=== PATIENT | female | born 1995 | race Caucasian/White ===

== ENCOUNTER 2018-05-17 15:43 | Emergency (ER) | payer MEDICAID ==
[2018-05-17 17:19] LABS: BILIRUBIN,URINE NEGATIVE (NEGATIVE); GLUCOSE, URINE (UA) NEGATIVE (NEGATIVE); KETONES,URINE (UA) NEGATIVE (NEGATIVE); LEUKOCYTE ESTERASE, URINE NEGATIVE (NEGATIVE); NITRITE,URINE POSITIVE (NEGATIVE); OCCULT BLOOD,URINE LARGE (NEGATIVE); PROTEIN,URINE TRACE mg/dL (NEGATIVE); UROBILINOGEN,URINE 0.2 (NORMAL) E.U./dL (NORMAL)
[2018-05-17 17:22] LABS: CLARITY,URINE CLOUDY (CLEAR)
[2018-05-17] MEDS ORDERED: SODIUM CHLORIDE 0.9% 1,000 ML IV ONE (17:24)
[2018-05-17] MEDS ORDERED: ONDANSETRON 4 MG/2 ML VIAL IVP STA (17:25)
[2018-05-17] MEDS ORDERED: HYDROmorphone 2 MG/ML VIAL IVP STA ×3 (17:25→21:23)
--- NOTE | 2018-05-17 17:28 | ED Physician Documentation ---
PD HPI ABD PAIN - Stated complaint Stated Complaint: ABD PX/FEM - Chief complaint Chief Complaint: Abd Pain - History obtained from History obtained from: Patient - History of Present Illness Timing - onset: Yesterday (, with 2 miscarriages in the past. She developed pelvic cramps yesterday which she thought was her menses. Her last period was March 25 and she is a bit late. She doubts though. She developed significant and severe bandlike lower abdominal/pelvic pain around noon today associated with hematuria one episode of diarrhea and vomiting. No sick contacts or recent travel.) - Additional information Additional information: She did have chlamydia once when she was 16, he is not particularly worried about STDs at this juncture as she has been with her current partner and they are for several years. Review of Systems Ten Systems: 10 systems reviewed and negative Constitutional: denies: Fever, Chills Cardiac: denies: Chest pain / pressure, Palpitations Respiratory: denies: Dyspnea, Cough GI: reports: Abdominal Pain, Nausea, Vomiting, Diarrhea : reports: Hematuria. denies: Dysuria, Frequency PD PAST MEDICAL HISTORY - Past Medical History Cardiovascular: None Respiratory: Asthma Endocrine/Autoimmune: None GI: None DIE BARBER: None HEENT: None Psych: Bipolar disorder Musculoskeletal: None Derm: None - Past Surgical History Past Surgical History: Yes - Present Medications Home Medications: Ambulatory Orders Medication Instructions Recorded Confirmed Albuterol 1 inh INH BID PRN 05/17/18 05/17/18 Ciprofloxacin HCl [Cipro] 500 mg PO BID #20 tablet 05/17/18 HYDROcod/ACETAM 5/325 [[place] 5/325] 1 - 2 ea PO Q6H PRN #15 tablet 05/17/18 - Allergies Allergies/Adverse Reactions: Allergies Allergy/AdvReac Type Severity Reaction Status Date / Time oxycodone HCl * Allergy Intermediate Emesis Verified 05/17/18 15:53 [From Percocet] codeine Allergy Itching Verified 05/17/18 15:53 - Social History Does the pt smoke?: Yes Smoking Status: Current every day smoker Does the pt drink ETOH?: Yes Does the pt have substance abuse?: Yes - Family History Family history: reports: Non contributory - Immunizations Immunizations are current?: No Immunizations: TDAP >10years/unknown - POLST Patient has POLST: No PD ED PE NORMAL - Vitals Vital signs reviewed: Yes - General General: Alert and oriented X 3, No acute distress - HEENT HEENT: PERRL, EOMI - Neck Neck: Supple, no meningeal sign, No bony TTP - Cardiac Cardiac: RRR, No murmur - Respiratory Respiratory: No respiratory distress, Clear bilaterally - Abdomen Abdomen: Other (Tender in the pelvis without lateralization, no surgical signs.) - Female Female : Refrigeration Specialist present (Taylor Rivera RN), Other (Some brownish and bloody discharge, no cervical motion or significant adnexal tenderness.) - Back Back: No CVA TTP, No spinal TTP - Derm Derm: Normal color, Warm and dry - Extremities Extremities: No deformity, No tenderness to palpate - Neuro Neuro: Alert and oriented X 3, Normal speech - Psych Psych: Normal mood, Normal affect Results - Vitals Vitals: Vital Signs - 24 hr 05/17/18 05/17/18 05/17/18 15:49 19:58 21:31 Temperature 36.2 C L 36.7 C Heart Rate 53 L 70 60 Respiratory 16 20 18 Rate Blood Pressure 134/89 H 126/78 130/84 H O2 Saturation 99 98 99 Oxygen O2 Source Room air - Labs Labs: Laboratory Tests 05/17/18 05/17/18 05/17/18 17:10 17:10 17:30 WBC 13.9 H RBC 5.06 Hgb 14.1 Hct 44.0 MCV 87.0 MCH 27.8 MCHC 32.0 RDW 15.5 H Plt Count 298 MPV 8.0 Neut # (Auto) 11.5 H Lymph # (Auto) 1.1 L Lea # (Auto) 0.8 Eos # (Auto) 0.4 Baso # (Auto) 0.1 Absolute Nucleated RBC 0.00 Nucleated RBC % 0.0 Sodium Potassium Chloride Carbon Dioxide Anion Gap BUN Creatinine Estimated GFR (MDRD) Glucose Calcium Total Bilirubin AST ALT Alkaline Phosphatase Total Protein Albumin Globulin Albumin/Globulin Ratio Lipase Urine Color LT RED Urine Clarity CLOUDY Urine pH 8.0 H Ur Specific [place] 1.020 1.020 Urine Protein TRACE Urine Glucose (UA) NEGATIVE Urine Ketones NEGATIVE Urine Occult Blood LARGE H Urine Nitrite POSITIVE H Urine Bilirubin NEGATIVE Urine Urobilinogen 0.2 (NORMAL) Ur Leukocyte Esterase NEGATIVE Urine RBC TNTC H Urine WBC 11-25 H Ur Squamous Epith Cells FEW Squamous Urine Bacteria Moderate H Ur Microscopic Review INDICATED Urine Culture Comments INDICATED Urine HCG, Qual NEGATIVE 05/17/18 17:30 WBC RBC Hgb Hct MCV MCH MCHC RDW Plt Count MPV Neut # (Auto) Lymph # (Auto) Lea # (Auto) Eos # (Auto) Baso # (Auto) Absolute Nucleated RBC Nucleated RBC % Sodium 141 Potassium 3.7 Chloride 107 Carbon Dioxide 24 Anion Gap 10.0 BUN 9 Creatinine 0.8 Estimated GFR (MDRD) 89 Glucose 105 H Calcium 9.6 Total Bilirubin 0.9 AST 22 ALT 18 Alkaline Phosphatase 65 Total Protein 7.9 Albumin 4.0 Globulin 3.9 Albumin/Globulin Ratio 1.0 Lipase 21 L Urine Color Urine Clarity Urine pH Ur Specific [place] Urine Protein Urine Glucose (UA) Urine Ketones Urine Occult Blood Urine Nitrite Urine Bilirubin Urine Urobilinogen Ur Leukocyte Esterase Urine RBC Urine WBC Ur Squamous Epith Cells Urine Bacteria Ur Microscopic Review Urine Culture Comments Urine HCG, Qual - Rads (name of study) Pelvic sono Radiology: EMP read contemporaneously (Small solid-appearing focus abutting the left ovary, possibly fallopian tube thickening or scarring.) CT A/P Radiology: EMP read contemporaneously (Normal) PD MEDICAL DECISION MAKING - ED course ED course: 22-year-old woman with acute pelvic pain, she has irregular menses and of course there is a concern for but that is not corroborated on test. She did have positive urinalysis but given the atypical symptoms this was followed by a pelvic ultrasound which was without really relevant findings, an abdominal CT which was normal, and a pelvic exam which was Without overt evidence of PID. She was treated with Rocephin here. Despite her allergies she says she is taking Dilaudid in the past but she only one very small doses which were given in stepwise fashion with improvement in her symptoms. - Sepsis Event Vital Signs: Vital Signs - 24 hr 05/17/18 05/17/18 05/17/18 15:49 19:58 21:31 Temperature 36.2 C L 36.7 C Heart Rate 53 L 70 60 Respiratory 16 20 18 Rate Blood Pressure 134/89 H 126/78 130/84 H O2 Saturation 99 98 99 Oxygen O2 Source Room air Departure - Departure Disposition: 01 Home, Self Care Clinical Impression: Abdominal pain, Bladder infection Condition: Good Record reviewed to determine appropriate education?: Yes Instructions: ED Pelvic Pain [facility] Prescriptions: Ciprofloxacin HCl [Cipro] 500 mg PO BID #20 tablet HYDROcod/ACETAM 5/325 [[place] 5/325] 1 - 2 ea PO Q6H PRN #15 tablet PRN Reason: Pain Comments: If not better by Sunday morning please return for reevaluation, sooner if worse or if new symptoms develop. We will culture your urine, the results should be done in 48-72 hours. If an antibiotic change is necessary we will call you. Return if worse in the meantime, especially if you develop increasing flank pain, fevers, or cannot keep down the medication. Do not drink or drive while taking narcotic pain medication. Note that many narcotic pain relievers also contain Tylenol/acetaminophen. Please ensure that your total dose of acetaminophen from all sources does not exceed 3 g (3000 mg) per day. You may get constipated while on this medication. Take a stool softener such as Colace twice a day while you are on it. Also add an iejn-xaw-linlqrq laxative such as senna or MiraLAX on any day that you do not have a bowel movement. If you received a narcotic pain medication or sedative while in the emergency department, do not drive for the next 24 hours.
[2018-05-17 17:37] LABS: RBC,URINE TNTC /HPF (0-5); SQUAMOUS EPITHELIAL CELL,UR FEW Squamous (<= Few)
[2018-05-17 17:38] LABS: BACTERIA,URINE Moderate /HPF (None Seen)
[2018-05-17 17:39] LABS: BASOPHILS # (AUTO) 0.1 10^3/uL (0.0-0.1); BASOPHILS % (AUTO) 0.5 %; EOSINOPHILS # (AUTO) 0.4 10^3/uL (0.0-0.7); EOSINOPHILS % (AUTO) 3.1 %; HGB - HEMOGLOBIN 14.1 g/dL (12.0-16.0); LYMPHOCYTES # (AUTO) 1.1 10^3/uL (1.5-3.5); LYMPHOCYTES % (AUTO) 8.1 %; MEAN CORPUSCULAR HEMOGLOBIN 27.8 pg (27.0-31.0); MONOCYTES # (AUTO) 0.8 10^3/uL (0.0-1.0); MONOCYTES % (AUTO) 5.4 %; NEUTROPHILS # (AUTO) 11.5 10^3/uL (1.5-6.6); NEUTROPHILS % (AUTO) 82.9 %; PLT - PLATELET COUNT 298 10^3/uL (130-450); RED BLOOD COUNT 5.06 10^6/uL (4.20-5.40); RED CELL DISTRIBUTION WIDTH 15.5 % (12.0-15.0); WHITE BLOOD COUNT 13.9 x10^3/uL (4.8-10.8)
[2018-05-17 17:56] LABS: BILIRUBIN,TOTAL 0.9 mg/dL (0.2-1.0); CALCIUM 9.6 mg/dL (8.5-10.3); CREATININE 0.8 mg/dL (0.4-1.0); TOTAL PROTEIN 7.9 g/dL (6.7-8.2)
[2018-05-17 17:59] LABS: HCG UR QUAL NEGATIVE
[2018-05-17] MEDS ORDERED: cefTRIAXone 1 GM in SODIUM CHLORIDE 0.9% MINIBAG 100 ML IV STA (18:12)
--- NOTE | 2018-05-17 19:58 | Ultrasound Report ---
Procedure Date: 05/17/2018 Accession Number: [id number] / [id number] Procedure: US - Pelvic w/Transvag+Doppler Ltd CPT Code: FULL RESULT: EXAM: PELVIC ULTRASOUND EXAM DATE: 05/17/2018 07:16 PM. CLINICAL HISTORY: Pelvic pain. Bleeding. COMPARISON: None. TECHNIQUE: Realtime transabdominal pelvic scan performed to identify the uterus and adnexa and as an overview of other pelvic structures, followed by transvaginal scan to provide greater detail of the uterus and adnexa, with static image documentation. FINDINGS: Uterus: 8.7 x 6.0 x 4.0 cm, volume 109.2 cc. Anteverted position. Normal overall size. Mildly heterogeneous echotexture. Masses: None. Endometrium: 8 mm. Normal. Cervix: Unremarkable. Right Ovary: 2.9 x 3.9 x 1.7 cm, volume 10.0 cc. Normal echotexture and blood flow. Left Ovary: 2.4 x 2.0 x 1.5 cm, volume 3.8 cc. Normal echotexture and blood flow. Solid-appearing area abutting the left ovary 3.4 x 1.5 x 1.6 cm. Free Fluid: Small amount of free fluid. Other: None. IMPRESSION: Small solid-appearing focus abutting the left ovary, possibly fallopian tube thickening or scarring. Otherwise unremarkable pelvic ultrasound. RADIA
[2018-05-17] MEDS ORDERED: KETOROLAC 60 MG/2 ML VIAL IVP STA (20:12)
[2018-05-17] MEDS ORDERED: IOPAMIDOL-300 100 ML VIAL ONE (20:34)
[2018-05-17] MEDS ORDERED: IOPAMIDOL-300 100 ML VIAL IVP ONE (20:37)
--- NOTE | 2018-05-17 21:05 | CT Report ---
Procedure Date: 05/17/2018 Accession Number: [id number] / [id number] Procedure: CT - Abdomen/Pelvis W/ CPT Code: FULL RESULT: EXAM: CT ABDOMEN AND PELVIS EXAM DATE: 05/17/2018 08:44 PM. CLINICAL HISTORY: Low abdomen pain. COMPARISONS: ABDOMEN/PELVIS W/O 12/13/2013 6:02 AM and ultrasound earlier today. TECHNIQUE: Routine helical CT imaging was performed through the abdomen and pelvis. IV contrast: 100 cc of Isovue-300. Enteric contrast: No. Reconstructions: Coronal and sagittal. In accordance with CT protocol optimization, one or more of the following dose reduction techniques were utilized for this exam: automated exposure control, adjustment of mA and/or KV based on patient size, or use of iterative reconstructive technique. FINDINGS: Lung Bases: Unremarkable. Liver: Normal. No masses. Gallbladder/Bile Ducts: Unremarkable. Spleen: Normal. Pancreas: Normal. Adrenal Glands: Normal. Kidneys: Normal. No masses or hydronephrosis. Peritoneal Cavity/Bowel: Normal. No free fluid, free air or adenopathy. No masses or acute inflammatory process. The appendix is well visualized and normal. Pelvic Organs: Normal. The bladder and visualized pelvic organs are within normal limits. Vasculature: No aneurysms or other significant abnormality. Bones: No significant abnormality. Other: None. IMPRESSION: Normal abdomen and pelvis CT. RADIA
[2018-05-17 21:31] VITALS: BP 130/84
[2018-05-17] MEDS ORDERED: HYDROcod/ACET 5/325 Prepack 4 PO STA (21:37)
== END 2018-05-17 21:49 | disposition home or self-care (01) ==
LOC: ED 15:43
DX: N30.90 Cystitis, unspecified without hematuria (principal)
CPT/HCPCS: 36415; 74177; 76830; 76856; 80053; 81001; 81025; 83690; 85025; 87077; 87086; 87181; 87491; 87591; 93976; 96361; 96365; 96375; 96376; 99284; J1170; Q9967; 81003

== ENCOUNTER 2018-09-17 14:01 | Emergency (ER) | payer MEDICAID ==
[2018-09-17 14:44] LABS: HCG UR QUAL NEGATIVE
--- NOTE | 2018-09-17 15:29 | XRAY Report ---
Reason: Trauma Procedure Date: 09/17/2018 Accession Number: [id number] / [id number] Procedure: XR - Tib/Fib LT CPT Code: FULL RESULT: EXAM: LEFT TIBIA/FIBULA RADIOGRAPHY EXAM DATE: 09/17/2018 03:27 PM. CLINICAL HISTORY: Trauma. COMPARISON: Leg lower left 09/17/2018 3:35 PM. TECHNIQUE: 2 views. FINDINGS: Bones: Normal. No fracture or bone lesion. Joints: The visualized knee and ankle joints are normal. No effusions. Soft Tissues: Normal. No soft tissue swelling. IMPRESSION: Normal tibia/fibula radiography. RADIA
[2018-09-17] MEDS ORDERED: HYDROcod/ACETAM 5/325 MG TABLET PO STA (15:37)
--- NOTE | 2018-09-17 15:40 | ED Physician Documentation ---
PD HPI LOWER EXT INJURY - Stated complaint Stated Complaint: GLF - Chief complaint Chief Complaint: Ext Problem - History obtained from History obtained from: Patient - History of Present Illness PD HPI LOW EXT INJURY LOCATION: Left, Lower leg (She was mowing her own lawn on a riding lawnmower. It flipped over and she got her leg caught between the mower in a brick wall. She cannot walk or bear weight. Pain goes from the knee to the ankle. She also hit her head and has a severe headache but denies loss of consciousness. 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 HEENT: None Psych: Bipolar disorder Musculoskeletal: None Derm: None - Past Surgical History Past Surgical History: Yes - Present Medications Home Medications: Ambulatory Orders Medication Instructions Recorded Confirmed Albuterol 1 inh INH BID PRN 05/17/18 09/17/18 Hydrocodone/Acetaminophen 1 - 2 each PO Q6H PRN #14 tablet 09/17/18 [Hydrocodon-Acetaminophen 5-325] - Allergies Allergies/Adverse Reactions: Allergies Allergy/AdvReac Type Severity Reaction Status Date / Time oxycodone HCl * Allergy Intermediate Emesis Verified 05/17/18 15:53 [From Percocet] codeine Allergy Itching Verified 05/17/18 15:53 - Social History Does the pt smoke?: Yes Smoking Status: Current every day smoker Does the pt drink ETOH?: Yes Does the pt have substance abuse?: Yes - Immunizations Immunizations are current?: No Immunizations: TDAP >10years/unknown - POLST Patient has POLST: No PD ED PE NORMAL - Vitals Vital signs reviewed: Yes - General General: Alert and oriented X 3, No acute distress - HEENT HEENT: PERRL, EOMI - Neck Neck: Supple, no meningeal sign, No bony TTP - Extremities Extremities: Other (Tender over the lateral lower leg Without deformity. The tenderness is diffuse and does not fit a specific anatomic structure. There is no foot tenderness.) - Neuro Neuro: Alert and oriented X 3, Normal speech - Psych Psych: Normal mood, Normal affect Results - Vitals Vitals: Vital Signs - 24 hr 09/17/18 14:15 Temperature 37.1 C Heart Rate 74 Respiratory 16 Rate Blood Pressure 126/73 O2 Saturation 99 Oxygen O2 Source Room air - Labs Labs: Laboratory Tests 09/17/18 14:20 Ur Specific [place] >=1.030 H Urine HCG, Qual NEGATIVE - Rads (name of study) Xrays L ankle, tibfib and Knee Radiology: EMP read contemporaneously (all neg) CT Head Radiology: EMP read contemporaneously (normal) Departure - Departure Disposition: 01 Home, Self Care Clinical Impression: Pain of lower extremity Qualifiers: Laterality: left Qualified Code(s): M79.605 - Pain in left leg Left ankle sprain Qualifiers: Encounter type: initial encounter Involved ligament of ankle: anterior talofibular ligament Qualified Code(s): S93.492A - Sprain of other ligament of left ankle, initial encounter Head injury Qualifiers: Encounter type: initial encounter Qualified Code(s): S09.90XA - Unspecified injury of head, initial encounter Contact with powered lawnmower as cause of accidental injury Qualifiers: Encounter type: initial encounter Qualified Code(s): W28.XXXA - 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 In the interim, return anytime if worse or if new symptoms develop. Forms: Activity restrictions
--- NOTE | 2018-09-17 16:11 | XRAY Report ---
Reason: Trauma Procedure Date: 09/17/2018 Accession Number: [id number] / [id number] Procedure: XR - Ankle 3 View LT CPT Code: FULL RESULT: EXAM: LEFT ANKLE RADIOGRAPHY EXAM DATE: 09/17/2018 03:19 PM. CLINICAL HISTORY: Trauma. COMPARISON: None. TECHNIQUE: 3 views. FINDINGS: Bones: No fracture or focal bony lesion. Small accessory ossicle or remote fracture at the inferior margin of the distal fibula. Joints: No evidence of dislocation. Soft Tissues: No unexpected soft tissue findings. IMPRESSION: No evidence of acute fracture or dislocation. RADIA
--- NOTE | 2018-09-17 16:17 | XRAY Report ---
Reason: kknee inj Procedure Date: 09/17/2018 Accession Number: [id number] / [id number] Procedure: XR - Knee 4 View LT CPT Code: FULL RESULT: EXAM: LEFT KNEE RADIOGRAPHY EXAM DATE: 09/17/2018 04:04 PM. CLINICAL HISTORY: Injury today. Pain. COMPARISON: None. TECHNIQUE: 4 views. FINDINGS: Bones: Normal. No fractures or bone lesions. Joints: Normal. No effusion. No subluxations. Soft Tissues: Normal. No soft tissue swelling. IMPRESSION: Normal knee radiography. RADIA
--- NOTE | 2018-09-17 16:50 | CT Report ---
Reason: head inj Procedure Date: 09/17/2018 Accession Number: [id number] / [id number] Procedure: CT - Head W/O CPT Code: FULL RESULT: EXAM: CT HEAD EXAM DATE: 09/17/2018 04:29 PM. 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 Pain. COMPARISON: None. TECHNIQUE: Multiaxial CT images were obtained from the foramen magnum to the vertex. Reformats: Sagittal and coronal. IV contrast: None. In accordance with CT protocol optimization, one or more of the following dose reduction techniques were utilized for this exam: automated exposure control, adjustment of mA and/or KV based on patient size, or use of iterative reconstructive technique. FINDINGS: Parenchyma: No intraparenchymal hemorrhage. No evidence of mass, midline shift, or CT findings of infarction. Marie-white differentiation is distinct. Extraaxial Spaces: Normal for age. No subdural or epidural collections identified. Ventricles: Normal in size and position. Sinuses and Orbits: Imaged paranasal sinuses, orbits, and mastoids show no significant abnormality. Bones: No evidence of fracture or calvarial defect. Other: None. IMPRESSION: Normal head CT. RADIA
[2018-09-17] MEDS ORDERED: HYDROmorphone 2 MG TABLET PO STA (17:06)
[2018-09-17 18:19] VITALS: BP 122/70
== END 2018-09-17 17:40 | disposition home or self-care (01) ==
LOC: ED 14:01
DX: S93.492A Sprain of other ligament of left ankle, initial encounter (principal); S09.90XA Unspecified injury of head, initial encounter; F17.200 Nicotine dependence, unspecified, uncomplicated; W28.XXXA Contact with powered lawn mower, initial encounter; Y93.89 Activity, other specified
CPT/HCPCS: 70450; 73564; 73590; 73610; 81025; 99283; A9270

== ENCOUNTER 2018-11-18 08:00 | Outpatient (CLI) | payer MEDICAID | END 2018-11-18 23:59 | disposition home or self-care (01) | LOC: LAB.R 08:00 | PROVIDERS: ATTEND Registered Nurse | DX: R31.9 Hematuria, unspecified (principal) | CPT/HCPCS: 87086 ==

== ENCOUNTER 2018-12-21 21:04 | Outpatient (CLI) | payer MEDICAID ==
--- NOTE | 2018-12-21 23:41 | Ultrasound Report ---
Reason: JOJO 2,MODERATE CERVICAL DYSPLASIA,DYSMENORRHEA Procedure Date: 12/21/2018 Accession Number: [id number] / [id number] Procedure: US - Pelvic w/Transvaginal CPT Code: FULL RESULT: EXAM: PELVIC ULTRASOUND EXAM DATE: 12/21/2018 09:33 PM. CLINICAL HISTORY: JOJO 2,MODERATE CERVICAL DYSPLASIA,DYSMENORRHEA. COMPARISON: None. TECHNIQUE: Realtime transabdominal pelvic scan performed to identify the uterus and adnexa and as an overview of other pelvic structures, followed by transvaginal scan to provide greater detail of the uterus and adnexa, with static image documentation. FINDINGS: Uterus: 9.5 x 3.8 x 5.7 cm, volume 107.8 cc. Anteverted position. Normal overall size and echotexture. Masses: None. Endometrium: 5 mm. IUD is low lying at the lower uterine segment. Cervix: Unremarkable. Right Ovary: 2.9 x 2.8 x 2.4 cm, volume 10.3 cc. Normal echotexture and blood flow. Left Ovary: 2.6 x 1.6 x 3.9 cm, volume 8.8 cc. Normal echotexture and blood flow. Free Fluid: None. Other: None. IMPRESSION: Low lying IUD at the lower uterine segment. RADIA
== END 2018-12-21 21:05 | disposition home or self-care (01) ==
LOC: DI 21:04
PROVIDERS: ATTEND Obstetrics & Gynecology
DX: N87.1 Moderate cervical dysplasia (principal); N94.6 Dysmenorrhea, unspecified; Z97.5 Presence of (intrauterine) contraceptive device
CPT/HCPCS: 76830; 76856

== ENCOUNTER 2019-01-08 11:36 | Day surgery (SDC) | payer MEDICAID ==
[~2019-01-08 11:36] MED LIST: ACETAMINOPHEN 1,000 MG/100 ML 100 ML IV ONE; GABAPENTIN 400 MG CAPSULE ONE
[2019-01-08] MEDS ORDERED: LEVONORGESTREL 1 EACH IUD IY ONE (11:37)
[2019-01-08] MEDS ORDERED: LACTATED RINGERS 1,000 ML IV ONE ×2 (11:43→15:54)
--- NOTE | 2019-01-08 12:40 | ANESTHESIA ---
Pre-Anesthesia VS, & Labs - NPO >8 hours <RoshniMarivel meyers - Last Filed: 01/08/19 12:51> - Is Patient ?: No <DelorisClaudia pathakane - Last Filed: 01/08/19 13:17> - Diagnosis cervical dysplasia, dismenorrea (Marivel Farah) cervical dysplasia, dismenorrea (Annalise Puentes) - Procedure Diagnostic Laparoscopy, IUD placement, LEEP (Marivel Farah) Diagnostic Laparoscopy, IUD placement, LEEP (Annalise Puentes) Vital Signs: Temp Pulse Resp BP Pulse Ox 37.1 C 63 16 110/74 100 01/08/19 11:53 01/08/19 11:53 01/08/19 11:53 01/08/19 11:53 01/08/19 11:53 Height 5 ft 7 in Weight (kg) 82.6 kg Body Mass Index 26.6 Home Medications and Allergies <RoshniluigiMarivel Rex - Last Filed: 01/08/19 12:51> <Annalise Puentes - Last Filed: 01/08/19 13:17> Albuterol 1 inh INH BID PRN 05/17/18 Allergies/Adverse Reactions: Allergies Allergy/AdvReac Type Severity Reaction Status Date / Time oxycodone HCl * Allergy Intermediate Emesis Verified 05/17/18 15:53 [From Percocet] codeine Allergy Itching Verified 05/17/18 15:53 Anes History & Medical History - Anesthetic History Anesthesia Complications: reports: No previous complications - Medical History Cardiovascular: reports: None Pulmonary: reports: Asthma Gastrointestinal: reports: None Urinary: reports: Chronic bladder infection Musculoskeletal: reports: None Endocrine/Autoimmune: reports: None Blood Disorders: reports: None Skin: reports: None Smoking Status: Current every day smoker - Surgical History Gynecologic: section <RoshniluigiMarivel Goodman - Last Filed: 01/08/19 12:51> Exam General: Alert Dental: WNL Mouth Opening: Greater than 4 Fingerbreadths Mallampati classification: II Respiratory: Lungs clear Cardiovascular: Regular rate Mental/Cognitive Status: Alert/Oriented X3 <RoshniluigiWilfridoMarivel E - Last Filed: 01/08/19 12:51> Plan Anesthesia Type: General Consent for Procedure(s) Verified and Reviewed: Yes Code Status: Attempt Resuscitation ASA classification: 2-Mild systemic disease Is this case an emergency?: No <Marivel Farah - Last Filed: 01/08/19 12:51>
[2019-01-08 13:16] LABS: HCG UR QUAL NEGATIVE
[2019-01-08] MEDS ORDERED: IODINE/POTASSIUM IODIDE 8 ML SOLUTION TOP ONE (13:28)
[2019-01-08] MEDS ORDERED: BUPIVACAINE 0.5%-EPI 1:200000 PF 30 ML VIAL ONE (13:28)
[2019-01-08] MEDS ORDERED: LIDOCAINE 1%-EPI 1:100000 30 ML MDV ONE (13:29)
[2019-01-08] MEDS ORDERED: GLYCOPYRROLATE 1 MG/5 ML VIAL IVP ONE (13:53)
[2019-01-08] MEDS ORDERED: fentaNYL 100 MCG/2 ML VIAL IVP ONE (13:53)
[2019-01-08] MEDS ORDERED: DEXAMETHASONE 4 MG/ML VIAL IVP ONE (13:53)
[2019-01-08] MEDS ORDERED: KETOROLAC 30 MG/ML VIAL IVP ONE (13:53)
[2019-01-08] MEDS ORDERED: ACETAMINOPHEN 1,000 MG/100 ML 100 ML IV ONE (13:53)
[2019-01-08] MEDS ORDERED: MIDAZOLAM 2 MG/2 ML VIAL IVP ONE (13:53)
[2019-01-08] MEDS ORDERED: ONDANSETRON 4 MG/2 ML VIAL IVP ONE (13:53)
[2019-01-08] MEDS ORDERED: ROCURONIUM 50 MG/5 ML VIAL IVP ONE (13:53)
[2019-01-08] MEDS ORDERED: NEOSTIGMINE 1 MG/1 ML 10 ML MDV IVP ONE (13:53)
[2019-01-08] MEDS ORDERED: PROPOFOL 200 MG/20 ML VIAL IVP ONE (13:53)
[2019-01-08] MEDS ORDERED: BUPIVACAINE 0.25%-EPI 1:200000 PF 30 ML VIAL SUBQ ONE ×2 (14:12)
[2019-01-08] MEDS ORDERED: LIDOCAINE 1%-EPI 1:100000 20 ML MDV SUBQ ONE ×3 (14:12→14:52)
--- NOTE | 2019-01-08 15:19 | OPERATIVE REPORT ---
Operative Report - General Planned Procedure: Preop: JOJO 2, chronic pelvic pain Postop: same and endometriosis Procedure: diagnostic laparoscopy, LEEP procedure, mirena IUD placement Surgeon: Ernie Assist: none EBL: 20cc IVF: 1000cc UOP: 300 Specimens: ectocervix, ventral ectocervix, and endocervical curettage Findings: normal except for 2 very small endo implants R uterosacral along ureter Complic: none Disp: PACU Prophylaxis: SCD to bilat LE
[2019-01-08] MEDS ORDERED: HYDROmorphone 0.5 MG/0.5 ML SYRINGE IVP PRN (15:20)
[2019-01-08] MEDS ORDERED: fentaNYL 100 MCG/2 ML VIAL ONE (15:41)
[2019-01-08] MEDS ORDERED: HYDROcod/ACETAM 5/325 MG TABLET ONE (16:22)
[2019-01-08 16:50] VITALS: BP 115/77
--- NOTE | 2019-01-09 12:29 | OPERATIVE REPORT ---
DATE OF SERVICE: 01/08/2019 Physician: Gayatri Klein MD PREOPERATIVE DIAGNOSES 1. Chronic pelvic pain. 2. Cervical intraepithelial neoplasia, grade 2 (JOJO 2). POSTOPERATIVE DIAGNOSES 1. Chronic pelvic pain. 2. Cervical intraepithelial neoplasia, grade 2 (JOJO 2). 3. Endometriosis. PROCEDURES 1. Diagnostic laparoscopy. 2. Loop electrocautery excision procedure of the cervix. 3. Mirena intrauterine device placement. SURGEON: Gayatri Klein MD INSIDE SALES RECRUITER: None. ANESTHESIA: General. ESTIMATED BLOOD LOSS: 20 mL. IV FLUIDS: 1000 mL. URINE OUTPUT: 300 mL. COUNTS: Correct x2. COMPLICATIONS: None apparent. DISPOSITION: Stable to the recovery room. PROPHYLAXIS: SCDs to bilateral lower extremities. SPECIMENS: Ectocervix, ventral ectocervix, and endocervical curettage sent to pathology. FINDINGS 1. Two very small (1-2 mm) endometriosis implants in the posterior cul-de-sac, close to the right uterosacral ligament along the path of the ureter. 2. Otherwise, normal abdomen and pelvis, including: Liver, stomach, appendix, uterus, ovaries, fallopian tubes, bladder peritoneum, round ligament insertions, vulva, and cervix. DESCRIPTION OF PROCEDURE: The patient was brought to the operating room where she was induced with general anesthesia. She was placed in low lithotomy and Yellofin stirrups. Her arms were tucked by her sides. She was prepped and draped in the usual sterile fashion. A speculum was placed, and a single-tooth tenaculum was applied to the anterior lip of the cervix, taking care to place this is far away from the LEEP specimen as possible. The cervix was sequentially dilated to 6 mm. A HUMI uterine manipulator was then placed. The tenaculum was removed. The surgeon's gloves were changed. The inferior umbilicus was infiltrated with local anesthesia. An 11 blade was used to make a vertical 5 mm incision in the lower umbilicus in the midline. A Visiport trocar was directly inserted into the peritoneal cavity under direct visualization. The abdomen was insufflated to a level of 15 mmHg. The contents of the abdomen and pelvis were inspected. I was not able to see behind the ovaries and fallopian tubes, and so two other trocars were placed in order to manipulate the anatomy. These trocars were also 5 mm, also premedicated with local anesthesia, and placed about 4 cm inferior to and 10 cm lateral to the umbilicus on both sides. Atraumatic graspers were used to flip the ovaries up to visualize the posterior aspect of the broad ligaments. These were negative for endometriosis implants. With further exploration of the cul-de-sac, the two very small endometriosis implants were seen, as described in findings. Unfortunately, I was not able to cauterize them because they were right on the ureter. The instruments were removed from her abdomen, and at this point, her laparoscopy was terminated. As much air as possible was expelled from her abdominal cavity using deep breaths. The skin was closed with interrupted sutures of 4-0 Monocryl. Dermabond was then applied. The LEEP procedure was then performed. A non-conducting speculum was placed into the vagina. The HUMI retractor was removed. A single-tooth tenaculum was reapplied to the anterior lip of the cervix away from the planned LEEP location. A paracervical block was then performed using 10 mL of lidocaine with epinephrine in divided doses bilaterally. The cervix was painted with Lugol's with no obvious nonstaining areas seen. The patient is a 23-year-old, and had chosen excision rather than expectant management. Because of this, I did choose to do a rather shallow LEEP specimen. The proper size loop was selected, and one pass was performed from 12 o'clock to 6 o'clock. There was still a little protruding lip of tissue at 12 o'clock, and so I made another small ventral pass at 12 o'clock. The LEEP bed was not bleeding much. An endocervical curettage was collected but it was scant in amount. The LEEP bed was cauterized, and hemostasis was easy to achieve. Mirena IUD insertion: The uterus was sounded to 7 cm. The Mirena device was inserted into the uterine cavity following bed laster's guidelines. The strings were then trimmed to 1 inch long. Hemostasis at the LEEP bed was excellent. All instruments were removed. The blood and iodine were washed from her body. She was returned to the supine position prior to waking. TD: 01/09/2019 12:18 [facility]
--- NOTE | 2019-01-09 18:55 | MISCELLANEOUS PROVIDER NOTE ---
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 Had Dx Scope/LEEP/Mirena Insertion yesterday and prescribed vicodin for pain. Started having pruritis last night which has intensified all over her body with vicodin. Denies hives/SOB or other sx. Wants something else for pain. Lives in [place], non-. Does not wish to come into ER. Advised to stop taking vicodin immediately and not to take in future. Recommended taking: Benadryl 50 mg p.o. q6h (max) Motrin 800 mg p.o. q8h WF (she already has) Tylenol 650 mg p.o. 4 hrs after each motrin dose (ie. alternating with motrin q4h) Call clinic in AM to speak with Dr. Klein about changing narcotic, or be seen in clinic if not improved. Go to ER if allergic sx worsen (ie. hives, SOB) Patient voiced understanding and agrees with plan.
== END 2019-01-08 11:37 | disposition home or self-care (01) ==
LOC: SDS 11:36
PROVIDERS: ATTEND Obstetrics & Gynecology
PROC: 0UH97HZ Insertion of Contraceptive Device into Uterus, Via Natural or Artificial Opening (ICD-10-PCS; 2019-01-08)
PROC: 0WJJ4ZZ Inspection of Pelvic Cavity, Percutaneous Endoscopic Approach (ICD-10-PCS; principal; 2019-01-08 12:45)
PROC: 0UBC7ZX Excision of Cervix, Via Natural or Artificial Opening, Diagnostic (ICD-10-PCS; 2019-01-08 12:45)
DX: N87.1 Moderate cervical dysplasia (principal); N80.3 Endometriosis of pelvic peritoneum; Z30.430 Encounter for insertion of intrauterine contraceptive device; J45.909 Unspecified asthma, uncomplicated; F17.210 Nicotine dependence, cigarettes, uncomplicated; Z87.440 Personal history of urinary (tract) infections
CPT/HCPCS: 49320; 57522; 58300; 81025; A9270; J0131; J7120; J7298

== ENCOUNTER 2019-03-20 08:00 | Outpatient (CLI) | payer MEDICAID ==
[2019-03-20 21:16] LABS: CANDIDA GROUP DNA NEGATIVE (NEGATIVE); CANDIDA KRUSEI DNA NEGATIVE (NEGATIVE); TRICHOMONAS VAGINALIS DNA NEGATIVE (NEGATIVE)
[2019-03-20 22:08] LABS: TRICHOMONAS VAGINALIS DNA NEGATIVE (NEGATIVE)
== END 2019-03-20 23:59 | disposition home or self-care (01) ==
LOC: LAB.R 08:00
PROVIDERS: ATTEND Obstetrics & Gynecology
DX: R10.2 Pelvic and perineal pain (principal)
CPT/HCPCS: 87086; 87491; 87591; 87661; 87801

== ENCOUNTER 2019-05-15 03:22 | Outpatient (CLI) | payer MEDICAID | END 2019-05-15 03:23 | disposition critical access hospital (66) | LOC: EMS 03:22 | PROVIDERS: ATTEND Surgery | DX: S11.91XA Laceration without foreign body of unspecified part of neck, initial encounter (principal); X78.8XXA Intentional self-harm by other sharp object, initial encounter; Y92.008 Other place in unspecified non-institutional (private) residence as the place of occurrence of the external cause | CPT/HCPCS: A0425; A0427; A0999 ==

== ENCOUNTER 2019-05-15 03:40 | Emergency (ER) | payer MEDICAID ==
[2019-05-15] MEDS ORDERED: SODIUM CHLORIDE 0.9% 1,000 ML IV ONE ×3 (03:48→12:18)
[2019-05-15] MEDS ORDERED: KETOROLAC 15 MG/ML VIAL IVP STA (03:48)
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
[2019-05-15 04:03] LABS: BASOPHILS # (AUTO) 0.1 10^3/uL (0.0-0.1); BASOPHILS % (AUTO) 0.4 %; EOSINOPHILS % (AUTO) 0.3 %; HGB - HEMOGLOBIN 11.2 g/dL (12.0-16.0); LYMPHOCYTES # (AUTO) 1.4 10^3/uL (1.5-3.5); LYMPHOCYTES % (AUTO) 12.2 %; MEAN CORPUSCULAR HEMOGLOBIN 29.3 pg (27.0-31.0); MEAN CORPUSCULAR HGB CONC 31.8 g/dL (32.0-36.0); MEAN CORPUSCULAR VOLUME 92.1 fL (81.0-99.0); MEAN PLATELET VOLUME 9.7 fL (7.9-10.8); MONOCYTES # (AUTO) 0.4 10^3/uL (0.0-1.0); MONOCYTES % (AUTO) 3.9 %; NEUTROPHILS # (AUTO) 9.4 10^3/uL (1.5-6.6); NEUTROPHILS % (AUTO) 82.8 %; PLT - PLATELET COUNT 274 10^3/uL (130-450); RED BLOOD COUNT 3.82 10^6/uL (4.20-5.40); RED CELL DISTRIBUTION WIDTH 15.1 % (12.0-15.0); WHITE BLOOD COUNT 11.4 x10^3/uL (4.8-10.8)
[2019-05-15] MEDS ORDERED: TETANUS/DIPHTHERIA/PERTUSSIS 0.5 ML SYRINGE IM ONE (04:09)
[2019-05-15 04:36] LABS: BUN - BLOOD UREA NITROGEN 10 mg/dL (6-20); CARBON DIOXIDE - CO2 17 mmol/L (21-32); CHLORIDE 111 mmol/L (101-111); SODIUM 142 mmol/L (135-145)
[2019-05-15 04:37] LABS: ALBUMIN 3.2 g/dL (3.2-5.5); ALKALINE PHOSPHATASE 59 IU/L (42-121); ALT ALANINE AMINOTRANSFERASE 13 IU/L (10-60); AST ASPARTATE AMINOTRANSFERASE 16 IU/L (10-42); BILIRUBIN,TOTAL 0.6 mg/dL (0.2-1.0); CALCIUM 8.2 mg/dL (8.5-10.3); CREATININE 0.9 mg/dL (0.4-1.0); GFR - MDRD 77 (>89); GLUCOSE 128 mg/dL (70-100); LIPASE 22 U/L (22-51); TOTAL PROTEIN 6.4 g/dL (6.7-8.2)
[2019-05-15 04:38] LABS: ACETAMINOPHEN < 10 ug/mL (10-30); SALICYLATE < 5.0 mg/dL
[2019-05-15] MEDS ORDERED: BACITRACIN OINT TOP ONE ×2 (05:04→14:45)
[2019-05-15 05:23] LABS: MUDS CUTOFF CONCENTRATIONS CUTOFF CONC BELOW:
[2019-05-15 05:26] LABS: BILIRUBIN,URINE NEGATIVE (NEGATIVE); GLUCOSE, URINE (UA) NEGATIVE (NEGATIVE); KETONES,URINE (UA) TRACE mg/dL (NEGATIVE); LEUKOCYTE ESTERASE, URINE NEGATIVE (NEGATIVE); NITRITE,URINE NEGATIVE (NEGATIVE); OCCULT BLOOD,URINE LARGE (NEGATIVE); PH,URINE 5.5 PH (5.0-7.5); PROTEIN,URINE NEGATIVE (NEGATIVE); UROBILINOGEN,URINE 0.2 (NORMAL) E.U./dL (NORMAL)
[2019-05-15 05:28] LABS: CLARITY,URINE CLEAR (CLEAR); HCG UR QUAL NEGATIVE
[2019-05-15 05:46] LABS: RBC,URINE TNTC /HPF (0-5)
[2019-05-15 05:47] LABS: BACTERIA,URINE Few /HPF (None Seen); CASTS, URINE 11-25 Hyaline Casts /LPF; MUCUS,URINE Few Strands; SQUAMOUS EPITHELIAL CELL,UR MOD Squamous (<= Few)
[2019-05-15 05:48] LABS: AMPHETAMINE SCREEN,URINE NEGATIVE (NEGATIVE); BENZODIAZEPINES SCREEN, URINE NEGATIVE (NEGATIVE); COCAINE SCREEN URINE NEGATIVE (NEGATIVE); METHADONE SCREEN, URINE NEGATIVE (NEGATIVE); METHAMPHETAMINES SCREEN, URINE NEGATIVE (NEGATIVE); OPIATE SCREEN, URINE NEGATIVE (NEGATIVE); OXYCODONE SCREEN, URINE NEGATIVE (NEGATIVE); PROPOXYPHENE SCREEN, URINE NEGATIVE (NEGATIVE); TRICYCLIC ANTIDEPRESSANT,URINE NEGATIVE (NEGATIVE)
[2019-05-15] MEDS ORDERED: KETOROLAC 30 MG/ML VIAL IVP STA ×2 (09:43→15:12)
[2019-05-15] MEDS ORDERED: traMADol 50 MG TABLET PO STA (12:18)
--- NOTE | 2019-05-15 16:00 | ED Physician Documentation ---
ED Addendum - Addendum Addendum: 05/15/19 15:59 Pt discovered by myself to have R thigh laceration of approximately 5cm requiring suture repair. Wound was anesthetized with 1% lidocaine with epi approximately 5cc, then irrigated. Then repaired with eight 4-0 ethilon sutures, interrupted. Dressed with bacitracin. Pt also given and additional dose of analgesics. She is stabilized for transfer to the outside facility.
[2019-05-15 19:21] VITALS: BP 118/76
[2019-05-15] MEDS ORDERED: ACETAMINOPHEN 325 MG TABLET PO STA (19:21)
== END 2019-05-15 19:50 | disposition short-term general hospital (02) ==
LOC: EDBD → EDUNIT# → ED 03:40
DX: S11.81XA Laceration without foreign body of other specified part of neck, initial encounter (principal); S71.111A Laceration without foreign body, right thigh, initial encounter; X78.8XXA Intentional self-harm by other sharp object, initial encounter; Y92.009 Unspecified place in unspecified non-institutional (private) residence as the place of occurrence of the external cause; F32.9 Major depressive disorder, single episode, unspecified; F43.10 Post-traumatic stress disorder, unspecified; F43.9 Reaction to severe stress, unspecified; F10.10 Alcohol abuse, uncomplicated; F17.200 Nicotine dependence, unspecified, uncomplicated; Z23 Encounter for immunization
CPT/HCPCS: 12002; 12042; 36415; 80053; 80306; 80307; 80320; 80329; 81001; 81025; 83690; 84443; 85025; 90471; 90715; 93005; 96361; 96374; 96376; 99284; 99285; A9270; 81003; 87086

== ENCOUNTER 2019-05-23 13:13 | Emergency (ER) | payer MEDICAID ==
[2019-05-23 13:24] VITALS: BP 140/76
--- NOTE | 2019-05-23 14:15 | ED Physician Documentation ---
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 : Chronic bladder infection HEENT: None Psych: Post traumatic stress disorder Musculoskeletal: None Derm: None - Past Surgical History Past Surgical History: Yes /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 - Present Medications Home Medications: Ambulatory Orders Medication Instructions Recorded Confirmed Albuterol 1 inh INH BID PRN 05/17/18 09/17/18 Hydrocodone/Acetaminophen 1 - 2 each PO Q6H PRN #14 tablet 09/17/18 [Hydrocodon-Acetaminophen 5-325] - Allergies Allergies/Adverse Reactions: Allergies Allergy/AdvReac Type Severity Reaction Status Date / Time oxycodone HCl * Allergy Intermediate Emesis Verified 05/23/19 13:24 [From Percocet] codeine Allergy Itching Verified 05/23/19 13:24 - Social History Does the pt smoke?: Yes Smoking Status: Current every day smoker Does the pt drink ETOH?: Yes Does the pt have substance abuse?: Yes - Immunizations Immunizations are current?: No Immunizations: TDAP >10years/unknown - POLST Patient has POLST: No PD ED PE NORMAL - Vitals Vital signs reviewed: Yes - General General: Alert and oriented X 3, No acute distress, Well developed/nourished - Neck Neck: Other (well healing sutured wound right anterior neck. No signs of infection. Also has wound right thigh without infection.) - Neuro Neuro: No motor deficit, No sensory deficit Results - Vitals Vitals: Oxygen O2 Source Room air PD MEDICAL DECISION MAKING - ED course Complexity details: considered differential (will have nursing take out sutures. ), d/w patient Departure - Departure Disposition: 01 Home, Self Care Clinical Impression: Visit for suture removal Condition: Stable Record reviewed to determine appropriate education?: Yes Instructions: ED Wound Check Sutr Remove No Infec Comments: Continue wound care until fully healed with cleaning daily with soap and water and applying ointment. Recheck if signs of infection. Discharge Date/Time: 05/23/19 14:38
== END 2019-05-23 14:38 | disposition home or self-care (01) ==
LOC: ED 13:13
DX: S11.91XD Laceration without foreign body of unspecified part of neck, subsequent encounter (principal); S79.921D Unspecified injury of right thigh, subsequent encounter; F17.200 Nicotine dependence, unspecified, uncomplicated
CPT/HCPCS: 99281

== ENCOUNTER 2019-08-05 08:00 | Outpatient (CLI) | payer MEDICAID ==
[2019-08-06 22:19] LABS: TRICHOMONAS VAGINALIS DNA NEGATIVE (NEGATIVE)
== END 2019-08-05 23:59 | disposition home or self-care (01) ==
LOC: LAB.R 08:00
PROVIDERS: ATTEND Obstetrics & Gynecology
DX: R10.2 Pelvic and perineal pain (principal)
CPT/HCPCS: 87491; 87591; 87661

== ENCOUNTER 2019-08-15 08:00 | Outpatient (CLI) | payer MEDICAID ==
[2019-08-15 22:21] LABS: CANDIDA GROUP DNA UNRESOLVED (NEGATIVE); CANDIDA KRUSEI DNA UNRESOLVED (NEGATIVE); TRICHOMONAS VAGINALIS DNA UNRESOLVED (NEGATIVE)
== END 2019-08-15 23:59 | disposition home or self-care (01) ==
LOC: LAB.R 08:00
PROVIDERS: ATTEND Obstetrics & Gynecology
DX: B37.3 Candidiasis of vulva and vagina (principal)
CPT/HCPCS: 87661; 87801

== ENCOUNTER 2019-10-09 16:32 | Emergency (ER) | payer OTHER, MEDICAID ==
[2019-10-09] MEDS ORDERED: HYDROcod/ACETAM 5/325 MG TABLET PO STA (17:46)
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
[2019-10-09 18:24] LABS: ALBUMIN 4.1 g/dL (3.2-5.5); BILIRUBIN,TOTAL 0.4 mg/dL (0.2-1.0); CALCIUM 9.1 mg/dL (8.5-10.3); TOTAL PROTEIN 8.1 g/dL (6.7-8.2)
[2019-10-09 18:27] LABS: BASOPHILS # (AUTO) 0.1 10^3/uL (0.0-0.1); BASOPHILS % (AUTO) 0.7 %; EOSINOPHILS # (AUTO) 0.2 10^3/uL (0.0-0.7); EOSINOPHILS % (AUTO) 1.7 %; HGB - HEMOGLOBIN 10.7 g/dL (12.0-16.0); LYMPHOCYTES # (AUTO) 1.8 10^3/uL (1.5-3.5); LYMPHOCYTES % (AUTO) 14.2 %; MEAN CORPUSCULAR HGB CONC 29.6 g/dL (32.0-36.0); MEAN CORPUSCULAR VOLUME 74.5 fL (81.0-99.0); MEAN PLATELET VOLUME 9.3 fL (7.9-10.8); MONOCYTES # (AUTO) 0.9 10^3/uL (0.0-1.0); MONOCYTES % (AUTO) 6.9 %; NEUTROPHILS # (AUTO) 9.6 10^3/uL (1.5-6.6); NEUTROPHILS % (AUTO) 76.2 %; PLT - PLATELET COUNT 320 10^3/uL (130-450); RED BLOOD COUNT 4.86 10^6/uL (4.20-5.40); RED CELL DISTRIBUTION WIDTH 20.8 % (12.0-15.0); WHITE BLOOD COUNT 12.6 x10^3/uL (4.8-10.8)
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
[2019-10-09] MEDS ORDERED: LIDOCAINE OINTMENT 5% 35.44 GM TUBE TOP STA (18:57)
--- NOTE | 2019-10-09 19:00 | XRAY Report ---
Reason: elbow pain Procedure Date: 10/09/2019 Accession Number: [id number] / [id number] Procedure: XR - Elbow 3 View RT CPT Code: Final Report FULL RESULT: EXAM: RIGHT ELBOW RADIOGRAPHY EXAM DATE: 10/09/2019 06:32 PM. CLINICAL HISTORY: Right elbow pain. COMPARISON: None. TECHNIQUE: 3 views. FINDINGS: Bones: Normal. No fractures or bone lesions. Joints: Normal. No effusion. No subluxation. Soft Tissues: Normal. No soft tissue swelling. IMPRESSION: Normal elbow radiography. RADIA
[2019-10-09 19:04] LABS: PLATELET ESTIMATE, MANUAL NORMAL (130-450,000) (NORMAL); PLATELET MORPHOLOGY NORMAL APPEARANCE (NORMAL)
[2019-10-09 19:46] VITALS: BP 121/73
== END 2019-10-09 19:48 | disposition home or self-care (01) ==
LOC: ED 16:32
DX: S16.1XXA Strain of muscle, fascia and tendon at neck level, initial encounter (principal); S09.90XA Unspecified injury of head, initial encounter; S00.83XA Contusion of other part of head, initial encounter; S40.021A Contusion of right upper arm, initial encounter; S40.022A Contusion of left upper arm, initial encounter; S50.12XA Contusion of left forearm, initial encounter; S50.312A Abrasion of left elbow, initial encounter; S50.311A Abrasion of right elbow, initial encounter; V48.0XXA Car driver injured in noncollision transport accident in nontraffic accident, initial encounter; F10.920 Alcohol use, unspecified with intoxication, uncomplicated; F17.200 Nicotine dependence, unspecified, uncomplicated
CPT/HCPCS: 36415; 70450; 70486; 72125; 73060; 73080; 73090; 73110; 80053; 80320; 83690; 85025; 99283; 99284; A9270

== ENCOUNTER 2019-12-23 08:00 | Outpatient (CLI) | payer SELFPAY ==
[2019-12-23 22:26] LABS: TRICHOMONAS VAGINALIS DNA NEGATIVE (NEGATIVE)
[2019-12-25 12:15] LABS: HEPATITIS C ANTIBODY NON-REACTIVE (NON-REACTIVE)
[2019-12-25 14:51] LABS: HIV AG/AB 4TH GEN NON-REACTIVE (NON-REACTIVE)
[2019-12-26 12:06] LABS: HSV 1 IGG TYPE SPECIFIC AB >58.00 index; HSV 2 IGG TYPE SPECIFIC AB <0.90 index
== END 2019-12-23 23:59 | disposition home or self-care (01) ==
LOC: LAB.N 08:00
PROVIDERS: ATTEND Physician Assistant Medical
DX: Z72.51 High risk heterosexual behavior (principal)
CPT/HCPCS: 36415; 81599; 86592; 86695; 86696; 86803; 87389; 87491; 87591; 87661

== ENCOUNTER 2019-12-23 08:00 | Outpatient (CLI) | payer SELFPAY | END 2019-12-23 23:59 | disposition home or self-care (01) | LOC: LAB.R 08:00 | PROVIDERS: ATTEND Physician Assistant Medical | DX: J02.9 Acute pharyngitis, unspecified (principal) | CPT/HCPCS: 87070 ==

== ENCOUNTER 2020-05-01 13:15 | Outpatient (CLI) | payer SELFPAY | END 2020-05-01 13:16 | disposition critical access hospital (66) | LOC: EMS 13:15 | PROVIDERS: ATTEND Surgery | DX: R41.82 Altered mental status, unspecified (principal); Z72.89 Other problems related to lifestyle | CPT/HCPCS: A0425; A0427 ==

== ENCOUNTER 2020-05-01 13:46 | Emergency (ER) | payer SELFPAY ==
[2020-05-01 14:13] LABS: MUDS CUTOFF CONCENTRATIONS CUTOFF CONC BELOW:
[2020-05-01 14:15] LABS: BILIRUBIN,URINE NEGATIVE (NEGATIVE); GLUCOSE, URINE (UA) NEGATIVE (NEGATIVE); KETONES,URINE (UA) NEGATIVE (NEGATIVE); LEUKOCYTE ESTERASE, URINE NEGATIVE (NEGATIVE); NITRITE,URINE NEGATIVE (NEGATIVE); OCCULT BLOOD,URINE NEGATIVE (NEGATIVE); PROTEIN,URINE NEGATIVE (NEGATIVE); UROBILINOGEN,URINE 0.2 (NORMAL) E.U./dL (NORMAL)
[2020-05-01 14:18] LABS: CLARITY,URINE CLEAR (CLEAR); HCG UR QUAL NEGATIVE
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
[2020-05-01 14:24] LABS: AMPHETAMINE SCREEN,URINE NEGATIVE (NEGATIVE); BENZODIAZEPINES SCREEN, URINE NEGATIVE (NEGATIVE); COCAINE SCREEN URINE NEGATIVE (NEGATIVE); METHADONE SCREEN, URINE NEGATIVE (NEGATIVE); METHAMPHETAMINES SCREEN, URINE NEGATIVE (NEGATIVE); OPIATE SCREEN, URINE NEGATIVE (NEGATIVE); TRICYCLIC ANTIDEPRESSANT,URINE NEGATIVE (NEGATIVE)
[2020-05-01 14:25] LABS: OXYCODONE SCREEN, URINE NEGATIVE (NEGATIVE); PROPOXYPHENE SCREEN, URINE NEGATIVE (NEGATIVE)
[2020-05-01 14:41] LABS: BASOPHILS # (AUTO) 0.1 10^3/uL (0.0-0.1); BASOPHILS % (AUTO) 0.7 %; EOSINOPHILS # (AUTO) 0.2 10^3/uL (0.0-0.7); EOSINOPHILS % (AUTO) 1.8 %; HGB - HEMOGLOBIN 12.8 g/dL (12.0-16.0); LYMPHOCYTES # (AUTO) 1.4 10^3/uL (1.5-3.5); LYMPHOCYTES % (AUTO) 13.9 %; MEAN CORPUSCULAR HEMOGLOBIN 25.2 pg (27.0-31.0); MEAN CORPUSCULAR HGB CONC 29.8 g/dL (32.0-36.0); MEAN CORPUSCULAR VOLUME 84.4 fL (81.0-99.0); MEAN PLATELET VOLUME 9.6 fL (7.9-10.8); MONOCYTES # (AUTO) 0.5 10^3/uL (0.0-1.0); MONOCYTES % (AUTO) 5.2 %; NEUTROPHILS # (AUTO) 7.9 10^3/uL (1.5-6.6); NEUTROPHILS % (AUTO) 77.6 %; PLT - PLATELET COUNT 370 10^3/uL (130-450); RED BLOOD COUNT 5.08 10^6/uL (4.20-5.40); RED CELL DISTRIBUTION WIDTH 17.7 % (12.0-15.0); WHITE BLOOD COUNT 10.2 x10^3/uL (4.8-10.8)
[2020-05-01 14:59] LABS: ACETAMINOPHEN < 10 ug/mL (10-30); ALBUMIN 3.9 g/dL (3.2-5.5); ALBUMIN/GLOBULIN RATIO 1.1 (1.0-2.2); ALKALINE PHOSPHATASE 59 IU/L (42-121); ALT ALANINE AMINOTRANSFERASE 77 IU/L (10-60); AST ASPARTATE AMINOTRANSFERASE 100 IU/L (10-42); BILIRUBIN,TOTAL 0.6 mg/dL (0.2-1.0); BUN - BLOOD UREA NITROGEN 6 mg/dL (6-20); CALCIUM 8.7 mg/dL (8.5-10.3); CARBON DIOXIDE - CO2 26 mmol/L (21-32); CHLORIDE 107 mmol/L (101-111); GLUCOSE 114 mg/dL (70-100); LIPASE 30 U/L (22-51); SALICYLATE < 6.0 mg/dL; SODIUM 142 mmol/L (135-145); TOTAL PROTEIN 7.6 g/dL (6.7-8.2)
[2020-05-01] MEDS ORDERED: KETOROLAC 30 MG/ML VIAL IVP STA (15:58)
[2020-05-01] MEDS ORDERED: ONDANSETRON 4 MG/2 ML VIAL IVP STA (15:58)
[2020-05-01 16:36] VITALS: BP 109/57
--- NOTE | 2020-05-01 16:45 | XRAY Report ---
PROCEDURE: Chest 2 View X-Ray INDICATIONS: chest pain TECHNIQUE: 2 view(s) of the chest. COMPARISON: None. FINDINGS: Surgical changes and devices: None. Lungs and pleura: No pleural effusions or pneumothorax. Lungs are clear. Mediastinum: Mediastinal contours are normal. Heart size is normal. Bones and chest wall: No suspicious bony abnormalities. Soft tissues appear unremarkable. IMPRESSION: No acute cardiopulmonary disease. Reviewed by: Pamela Estrada MD on 05/01/2020 4:44 PM PDT Approved by: Pamela Estrada MD on 05/01/2020 4:44 PM PDT Station ID: [id number]
== END 2020-05-01 17:27 | disposition home or self-care (01) ==
LOC: EDUNIT# → ED 13:46
DX: T50.901A Poisoning by unspecified drugs, medicaments and biological substances, accidental (unintentional), initial encounter (principal); R40.4 Transient alteration of awareness; F10.129 Alcohol abuse with intoxication, unspecified; F17.200 Nicotine dependence, unspecified, uncomplicated
CPT/HCPCS: 36415; 71046; 80053; 80306; 80307; 80320; 80329; 81001; 81003; 81025; 83690; 84443; 85025; 87086; 93005; 96374; 99284

== ENCOUNTER 2020-08-04 08:54 | Outpatient (CLI) | payer SELFPAY | END 2020-08-04 08:55 | disposition EMS.NT | LOC: EMS 08:54 | PROVIDERS: ATTEND Surgery ==